=== PATIENT | female | born 1980 | race Caucasian/White ===

== ENCOUNTER 2016-12-21 16:58 | Emergency (ER) | payer OTHER ==
--- OUTSIDE RECORDS SUMMARY | 2016-12-21 17:17 | XMS REPORT | Continuity of Care Document ---
:1980 Author Organization [facility] Address [place] [address] Care Team Providers Name Role Phone Unavailable Primary Care Provider Unavailable Source Comments This disclosure is being made pursuant to the [employer] program and maynot contain all information available regarding this patient.[facility] Active Allergies and Adverse Reactions Not on File Current Medications Be aware that medications may not be up to date as of this document. Alwaysverify current medications with the patient. Not on file Active Problems Not on file Immunizations Name Dates Previously Given Next Due Influenza Split 07/31/2012 Social History Tobacco Use Types Packs/Day Years Used Date Never Smoker Last Filed Vital Signs Vital Sign Reading Time Taken Blood Pressure 90/60 01/01/2013 10:22 AM CDT Pulse 80 01/01/2013 10:22 AM CDT Temperature 36.2 C (97.2 F) 01/01/2013 10:22 AM CDT Respiratory Rate 18 01/01/2013 10:22 AM CDT Height 1.626 m (5' 4") 01/01/2013 10:22 AM CDT Weight 123.95 kg (273 lb 4.2 oz) 01/01/2013 10:22 AM CDT Body Mass Index 46.88 01/01/2013 10:22 AM CDT Oxygen Saturation - - Plan of Care Health Maintenance Due Date Last Done Comments Tetanus/Pertussis (1 - Tdap) 1997 Pap Smear 1999 Influenza Immunization (#1) 2016 07/31/2012 Results from Last 3 Months Not on file
--- OUTSIDE RECORDS SUMMARY | 2016-12-21 17:17 | XMS REPORT | Continuity of Care Document ---
:1980 Author Organization [facility] ([facility]) Address [place] [address] Phone [phone] Care Team Providers Name Role Phone [facility] [id number] Primary Care Provider [phone] Source Comments This disclosure is being made pursuant to the Care Everywhere program, applicable federal and state laws, and may not contain all informaitonavailable regarding this patient.[facility] ([facility]) Active Allergies and Adverse Reactions No Known Allergies Current Medications No known medications Active Problems Problem Noted Date Pain in joint, multiple sites 11/25/2011 Back pain 11/25/2011 Edema 11/25/2011 Overview: No medical treatment DUPREE (dyspnea on exertion) 11/25/2011 Overview: With climbing 2 flights of stairs or more Generalized headaches 11/25/2011 Irregular menses 11/25/2011 Previous delivery, antepartum condition or complication 08/19/2006 state, incidental 04/22/2006 Decreased movements, affecting management of mother, antepartum 2005 Other specified complication, antepartum 10/11/2005 Unspecified hypertension antepartum 07/26/2005 Immunizations Name Dates Previously Given Next Due Influenza, unspecified 07/26/2005 Social History Tobacco Use Types Packs/Day Years Used Date Never Smoker Smokeless Tobacco: Never Used Tobacco Cessation:Counseling Given: No Comments: Alcohol Use Drinks/Week oz/Week Comments Yes last drink before Last Filed Vital Signs Vital Sign Reading Time Taken Blood Pressure 140/82 10/05/2012 2:37 PM CDT Pulse 88 10/05/2012 2:37 PM CDT Temperature 37 C (98.6 F) 10/05/2012 2:37 PM CDT Respiratory Rate 20 02/24/2012 12:22 PM CDT Height 1.57 m (5' 1.81") 11/09/2012 7:40 AM CDT Weight 122.5 kg (270 lb 1 oz) 11/09/2012 7:40 AM CDT Body Mass Index 49.7 11/09/2012 7:40 AM CDT Oxygen Saturation - - Plan of Care Health Maintenance Due Date Last Done Comments Hepatitis B Vaccine (1 of 3 - Primary 1978 Series) Tdap Vaccine 1989 Lipid Disorder Screening 1996 MMR Vaccine 1996 Td Vaccine 1996 Cervical Cancer Screening 04/22/2009 04/22/2006, 07/26/2005 Influenza Vaccine: Seasonal (#1) 02/16/2016 07/26/2005 Results from Last 3 Months Not on file
--- NOTE | 2016-12-21 17:21 | ERNOTE ---
Integumentary HPI - General Presenting Symptoms: insect bite Time Seen by Provider: 12/21/16 17:06 Source: patient Exam Limitations: no limitations - Immun/Allergies/Home Medications Immunizations: IMMUNIZATION HX Immunizations Up to Date Yes History of Influenza Vaccine No Hx Pneumococcal Vaccination No Allergies/Adverse Reactions: Allergies Allergy/AdvReac Type Severity Reaction Status Date / Time No Known Allergies Allergy Verified 12/21/16 17:04 Home Medications: HOME MEDICATIONS Levothyroxine Sodium [Synthroid] 50 mcg PO DAILY 12/21/16 [Last Taken Unknown] - History of Present Illness Narrative: Just prior to coming here patient noticed what appears to be a tick on her left ankle. She gets in and out of her car which is parked under a big tree, otherwise she is not outside a lot, denies any other symptoms. She is rather anxious since she has not had a tick before Date (Duration): 12/21/16 Review of Systems - Review of Systems Constitutional: Absent: recent illness, fever ENT: Absent: nasal drainage, sore throat Respiratory: Absent: shortness of breath, cough Cardiology: Absent: chest pain Gastrointestinal/Abdominal: Absent: nausea, vomiting, abdominal pain Genitourinary: Present: no symptoms reported Skin: Present: See HPI Neurological: Absent: weakness, numbness - Patient's Past Medical History Patient History - Medical: No pertinent hx Patient History - Cardiac/Respiratory: No pertinent hx Patient History - Cancer: Other Patient History - Surgical Procedures: Cholecystectomy, - Social History Living Situations: significant other - from [place]. moved here to be with her signficant other. Have you smoked in the past 12 months: No Alcohol Use: none - Immunizations Immunizations Up to Date: Yes Hx Pneumococcal Vaccination: No History of Influenza Vaccine: No Physical Exam - Physical Exam General Appearance: Present: wd/wn, alert, no apparent distress, anxious, obese Respiratory: Present: no respiratory distress, normal breath sounds, lungs clear Cardiovascular/Chest: Present: regular rate, rhythm, no murmur Extremity Exam: Present: normal except -, other - 2mm tick on left medial ankle , no surrounding skin changes Neurological Exam: Present: alert, oriented, normal mood/affect Skin Exam: Present: normal color, warm/dry ED Progress - Vital Signs Patient's Vital Signs:: I have reviewed the patient's vital signs. Vital Signs: Vital Signs 12/21/16 17:01 Temperature 37 C Pulse Rate 120 H Respiratory 12 Rate Blood Pressure 158/84 O2 Sat by Pulse 96 Oximetry - Progress/Reassessment Chief Complaint: Insect Bite Progress Note-Subjective: 12/21/16 17:10 tick removed with traction Departure Clinical Impression: Tick bite of left lower leg Qualifiers: Encounter type: initial encounter Qualified Code(s): S80.862A - Insect bite ( nonvenomous), left lower leg, initial encounter; W57.XXXA - Bitten or stung by nonvenomous insect and other nonvenomous arthropods, initial encounter - Departure Disposition: Home self-care Condition: Good Instructions: Insect Bite Additional Instructions: as the tick was very small it is unlikely to have transmitted any diseases Referrals: Shy Rosenberg DO [Primary Care Provider] - (as needed)
[2016-12-21 17:22] VITALS: BP 133/90
== END 2016-12-21 17:28 | disposition home or self-care (01) ==
LOC: ER 16:58
DX: S90.562A Insect bite (nonvenomous), left ankle, initial encounter (principal); W57.XXXA Bitten or stung by nonvenomous insect and other nonvenomous arthropods, initial encounter

== ENCOUNTER 2016-12-30 14:53 | Emergency (ER) | payer OTHER ==
[2016-12-30 14:59] VITALS: BP 143/85
--- NOTE | 2016-12-30 15:21 | ERNOTE ---
Integumentary HPI - Narrative Date of Service: 12/30/16 - General Time Seen by Provider: 12/30/16 15:02 - Immun/Allergies/Home Medications Immunizations: IMMUNIZATION HX Immunizations Up to Date Yes History of Influenza Vaccine No Hx Pneumococcal Vaccination No Allergies/Adverse Reactions: Allergies Allergy/AdvReac Type Severity Reaction Status Date / Time No Known Allergies Allergy Verified 12/30/16 14:59 Home Medications: HOME MEDICATIONS Levothyroxine Sodium [Synthroid] 50 mcg PO DAILY 12/21/16 [Last Taken Unknown] Sulfamethoxazole/Trimethoprim [Bactrim Ds] 1 tab PO BID #28 tab 12/30/16 [Last Taken Unknown] - History of Present Illness Narrative: Pt. comes in with c/o Red area surrounding a tick bite that she got four days ago. The tick was removed by our ER within 2 hours of being exposed and was 2mm in size. Pt. denes any other prehospital treatment, fevers, SOB, NVD, CP, dizziness, lightheadedness, or rash. Review of Systems - Review of Systems Constitutional: Present: no symptoms reported. Absent: recent illness, fever, chills, weakness, fatigue, malaise EYE: Present: no symptoms reported ENT: Present: no symptoms reported Respiratory: Present: no symptoms reported. Absent: shortness of breath, cough , wheezing Cardiology: Present: no symptoms reported. Absent: chest pain, palpitations, edema Gastrointestinal/Abdominal: Present: no symptoms reported. Absent: nausea, vomiting, diarrhea Genitourinary: Present: no symptoms reported Musculoskeletal: Present: no symptoms reported. Absent: back pain, neck pain, joint pain Skin: Present: lesions - 1cm surrounding tick bite on R posterior ankle. Absent : rash Neurological: Present: no symptoms reported. Absent: headache, dizziness/light- headedness, numbness, tingling All Other Systems: All systems neg except as marked - Patient's Past Medical History Patient History - Medical: No pertinent hx Patient History - Cardiac/Respiratory: No pertinent hx Patient History - Cancer: Other Patient History - Surgical Procedures: Cholecystectomy, Patient History - Other: None LMP (females 10-50): last week - Social History Living Situations: home Psych History: No pertinent hx Alcohol Use: none - Immunizations Immunizations Up to Date: Yes Hx Pneumococcal Vaccination: No History of Influenza Vaccine: No Physical Exam - Physical Exam General Appearance: Present: wd/wn, alert, no apparent distress Eye Exam: Normal inspection: bilateral, PERRL: bilateral, EOMI: bilateral Ears, Nose, Throat: Present: normal ENT inspection, normal pharynx Neck: Present: normal inspection, nontender. Absent: lymphadenopathy (R), lymphadenopathy (L) Respiratory: Present: no respiratory distress, normal breath sounds, no accessory muscle use, chest nontender, lungs clear Cardiovascular/Chest: Present: regular rate, rhythm, no murmur, normal peripheral pulses Gastrointestinal/Abdominal: Present: normal bowel sounds, nontender Back Exam: Present: normal inspection Extremity Exam: Present: normal range of motion, no edema, other - erythematous induration 1cm surrounding tick bite on R posterior ankle Neurological Exam: Present: alert, oriented, normal mood/affect, no motor/ sensory deficits Skin Exam: Present: normal color, warm/dry. Absent: pallor, skin rash ED Progress - Date and Time Seen: Date and Time: 12/30/16 15:19 As pt. has local signs of infection but not signs of Lymes disease feel that pt. should be treated for local infection and not tested for Lymes at this time but should be monitored for a week or so by her PCP for signs of lymes. - Vital Signs Patient's Vital Signs:: I have reviewed the patient's vital signs. Vital Signs: Vital Signs 12/30/16 14:56 Temperature 37.2 C Pulse Rate 98 Respiratory 15 Rate Blood Pressure 143/85 O2 Sat by Pulse 97 Oximetry - Progress/Reassessment Chief Complaint: Insect Bite Progress:: Unchanged Departure Clinical Impression: Tick bite of right lower leg with infection Qualifiers: Encounter type: subsequent encounter Qualified Code(s): S80.861D - Insect bite (nonvenomous), right lower leg, subsequent encounter; L08.9 - Local infection of the skin and subcutaneous tissue, unspecified; W57.XXXD - Bitten or stung by nonvenomous insect and other nonvenomous arthropods, subsequent encounter - Departure Disposition: Home self-care Condition: Good Instructions: Cellulitis, Adult, [id number] Additional Instructions: Please follow up with primary provider as scheduled Prescriptions: Sulfamethoxazole/Trimethoprim [Bactrim Ds] 1 tab PO BID #28 tab
--- OUTSIDE RECORDS SUMMARY | 2016-12-30 15:25 | XMS REPORT | Continuity of Care Document ---
:1980 Author Organization [facility] ([facility]) Address [place] [address] Phone [phone] Care Team Providers Name Role Phone [facility] [id number] Primary Care Provider [phone] Source Comments This disclosure is being made pursuant to the Care Everywhere program, applicable federal and state laws, and may not contain all informaitonavailable regarding this patient.[facility] ([facility]) Active Allergies and Adverse Reactions No Known [...]
--- OUTSIDE RECORDS SUMMARY | 2016-12-30 15:25 | XMS REPORT | Continuity of Care Document ---
:1980 Author Organization [facility] [place] [address] Care Team Providers Name Role Phone Unavailable Primary Care Provider Unavailable Source Comments This disclosure is being made pursuant to the [employer] program and maynot contain all information available regarding this patient.[facility] Active Allergies and Adverse Reactions Not on [...]
== END 2016-12-30 15:29 | disposition home or self-care (01) ==
LOC: ER 14:53
DX: S80.861D Insect bite (nonvenomous), right lower leg, subsequent encounter (principal); W57.XXXD Bitten or stung by nonvenomous insect and other nonvenomous arthropods, subsequent encounter

== ENCOUNTER 2017-04-13 08:18 | Emergency (ER) | payer OTHER ==
[2017-04-13] MEDS ORDERED: ORPHENADRINE CITRATE 30 MG/ML VIAL IM ONE (08:56)
[2017-04-13] MEDS ORDERED: KETOROLAC TROMETHAMINE 30 MG/ML VIAL IM ONE (08:56)
[2017-04-13] MEDS ORDERED: ORPHENADRINE CITRATE 30 MG/ML VIAL ONE (09:04)
[2017-04-13] MEDS ORDERED: KETOROLAC TROMETHAMINE 30 MG/ML VIAL ONE (09:04)
--- NOTE | 2017-04-13 09:42 | ERNOTE ---
Back Pain ER HPI Date of Service: 04/13/17 Presenting Symptoms: other - back pain Time Seen by Provider: 04/13/17 08:56 Source: patient Exam Limitations: no limitations Immunizations: IMMUNIZATION HX Immunizations Up to Date Yes History of Influenza Vaccine No Hx Pneumococcal Vaccination No Allergies/Adverse Reactions: Allergies No Known Allergies Allergy (Verified 12/30/16 14:59) Home Medications: HOME MEDICATIONS Levothyroxine Sodium [Synthroid] 50 mcg PO DAILY 12/21/16 [Last Taken Unknown] Sulfamethoxazole/Trimethoprim [Bactrim Ds] 1 tab PO BID #28 tab 12/30/16 [Last Taken Unknown] Cyclobenzaprine HCl [Flexeril] 10 mg PO TID PRN #20 tab 04/13/17 [Last Taken Unknown] Naproxen [Naprosyn] 375 mg PO BID #14 tab 04/13/17 [Last Taken Unknown] Narrative: Patient presents for back pain. She has been having a couple of week of right sided leg/thigh pain. She saw her doctor and was diagnosed with a pinched nerve in her back. No N/T/W. no fever. This am when she tried to get out of bed she had pain in her low back. This is mostly right sided but some on the left. Pain moderate now. Worse with movement. No new N/T/W. No dysuria. no hematuria. No midline tenderness. No fall or other trauma. Timing: Reports: constant Quality/Severity: Reports: moderate Location of pain: Reports: lower back Activities at Onset: Reports: other - turning, getting out of bed. Possible Precipitating Factor: Reports: turning/bending Modifying Factors - (Improves): Reports: other - rest Modifying Factors - (Worsens): Reports: other - movement and palpation Associated Symptoms: Denies: fever/chills, sweating, constipation/incontinence, nausea/vomiting, problems urinating, difficulty walking, numbess/weakness in legs Prior Treament: Reports: recently seen Review of Systems - Review of Systems Constitutional: Absent: fever Respiratory: Absent: shortness of breath Cardiology: Absent: chest pain Gastrointestinal/Abdominal: Absent: abdominal pain Genitourinary: Absent: dysuria Musculoskeletal: Present: See HPI Skin: Absent: rash Neurological: Absent: weakness, numbness, tingling - Patient's Past Medical History Patient History - Medical: Hypothyroidism Patient History - Cardiac/Respiratory: No pertinent hx Patient History - Cancer: Other Patient History - Surgical Procedures: Cholecystectomy, Patient History - Other: None LMP (females 10-50): last week - Social History Living Situations: home Abuse History: No History of abuse Psych History: No pertinent hx Smoking Status: Never smoker Alcohol Use: none Drug Use: none - Immunizations Immunizations Up to Date: Yes Hx Pneumococcal Vaccination: No History of Influenza Vaccine: No Physical Exam - Physical Exam General Appearance: Present: alert, no apparent distress Head Exam: Present: normal inspection Eye Exam: Normal inspection: bilateral Ears, Nose, Throat: Present: normal ENT inspection Neck: Present: normal inspection Respiratory: Present: no respiratory distress Cardiovascular/Chest: Present: regular rate, rhythm Gastrointestinal/Abdominal: Present: normal bowel sounds, nontender, soft Back Exam: Present: other - no vertebral tendenress. There is completely reproducible tendenress in the bilateral muscualture right greater than left. Palpation of the musculature completely reproduces the pain. Absent: CVA tenderness (R), CVA tenderness (L) Extremity Exam: Present: normal inspection, normal range of motion Neurological Exam: Present: alert, normal mood/affect, no motor/sensory deficits , other - Patellar tendon reflexes equal and symmetric. Full LE strength and sensation. Gait stable. Can stand on toes and heels. No suggestion of motor or sensory deficit or cauda equina syndrome. Skin Exam: Present: normal color, warm/dry ED Progress - Vital Signs Patient's Vital Signs:: I have reviewed the patient's vital signs. Vital Signs: Vital Signs 04/13/17 08:28 Temperature 36.5 C Pulse Rate 65 Respiratory 16 Rate Blood Pressure 167/102 O2 Sat by Pulse 99 Oximetry - Progress/Reassessment Chief Complaint: Back Pain Progress Note-Subjective: 04/13/17 09:41 No red flags, I do not feel x-ray indicated. nothing to suggest fracture, infectious process, diskiitis, neuro defict, urinary source of cauda-equina syndrome. She is improved with meds here. She feels like going home. Nothing to suggest need for emergent MRI. I discussed warning signs and reasons to return as well as the need for close f/u. Departure Clinical Impression: Back pain - Departure Disposition: Home self-care Condition: Stable Instructions: Back Pain, Adult Additional Instructions: Rest. medications as directed. No driving while taking. Follow-up with your doctor, May 02 at 4pm. Call to see if you can get a sooner appointment. Return here for fever, numbness, tingling, weakness, loss of bowel or bladder control, urinary symptoms or if your condition worsens or changes in any way. Referrals: Shy Rosenberg DO [Primary Care Provider] - Prescriptions: Cyclobenzaprine HCl [Flexeril] 10 mg PO TID PRN #20 tab PRN Reason: MUSCLE SPASMS Naproxen [Naprosyn] 375 mg PO BID #14 tab
[2017-04-13 09:52] VITALS: BP 134/84
== END 2017-04-13 09:52 | disposition home or self-care (01) ==
LOC: ER 08:18
DX: M54.9 Dorsalgia, unspecified (principal)

== ENCOUNTER 2017-05-24 07:55 | Emergency (ER) | payer OTHER ==
--- NOTE | 2017-05-24 08:22 | ERNOTE ---
Chest Pain/Cardiac HPI Chief Complaint: Palpitations Time Seen by Provider: 05/24/17 08:13 Source: patient Exam Limitations: no limitations - patient states Immunizations: IMMUNIZATION HX Immunizations Up to Date Yes History of Influenza Vaccine No Hx Pneumococcal Vaccination No Allergies/Adverse Reactions: Allergies No Known Allergies Allergy (Verified 05/24/17 08:07) Home Medications: HOME MEDICATIONS Levothyroxine Sodium [Synthroid] 50 mcg PO DAILY 12/21/16 [Last Taken Unknown] Narrative: Patient states that she has been having heart palpitations for the past 2 weeks roughly. She states that she used to drink a lot of pop, but she has been trying to cut down and is just concerned because the family history of heart disease. Patient denies any chest pain, jaw pain, arm pain or diaphoresis. Timing: intermittent Severity/Quality: moderate, other - feels as though her heart is jumping around in her chest Location: central Chest Pain Radiation: no radiation Activities at Onset: none Modifying Factors - Improves: Present: nothing Modifying Factors - Worsens: Present: nothing Associated Symptoms: Present: denies symptoms Prior Chest Pain/Cardiac Workup: Reports: no prior cardiac workup Prior Treatment: Reports: recently seen, other - her family doctor is adjusting her thyroid medicine Review of Systems - Review of Systems Constitutional: Present: See HPI EYE: Present: no symptoms reported ENT: Present: no symptoms reported Respiratory: Present: no symptoms reported Cardiology: Present: See HPI Gastrointestinal/Abdominal: Present: no symptoms reported Genitourinary: Present: no symptoms reported Musculoskeletal: Present: no symptoms reported Skin: Present: no symptoms reported Neurological: Present: no symptoms reported Endocrine: Present: no symptoms reported Hematologic/Lymphatic: Present: no symptoms reported Psych: Present: no symptoms reported - Patient's Past Medical History Patient History - Medical: Hypothyroidism Patient History - Cardiac/Respiratory: No pertinent hx Patient History - Cancer: Other Patient History - Surgical Procedures: Cholecystectomy, Patient History - Other: None LMP (females 10-50): 1 month LMP (Calendar): 05/04/17 - Social History Living Situations: home Abuse History: No History of abuse Psych History: No pertinent hx Smoking Status: Never smoker Alcohol Use: none Drug Use: none - Immunizations Immunizations Up to Date: Yes Hx Pneumococcal Vaccination: No History of Influenza Vaccine: No Physical Exam - Physical Exam General Appearance: Present: wd/wn, alert, no apparent distress Head Exam: Present: normal inspection Eye Exam: Normal inspection: bilateral, PERRL: bilateral Ears, Nose, Throat: Present: normal ENT inspection, H, normal pharynx Neck: Present: normal inspection, nontender Respiratory: Present: no respiratory distress, normal breath sounds, no accessory muscle use, chest nontender, lungs clear Cardiovascular/Chest: Present: regular rate, rhythm, no murmur, normal peripheral pulses Gastrointestinal/Abdominal: Present: normal bowel sounds, nontender, nondistended, soft, no organomegaly, other - obesity Rectal Exam: Present: deferred Back Exam: Present: normal inspection, normal range of motion Extremity Exam: Present: normal inspection, non-tender, no edema, normal range of motion Neurological Exam: Present: alert, oriented, normal mood/affect Skin Exam: Present: normal color, warm/dry Lymphatic Exam: Present: no adenopathy ED Progress - Results and Orders Patient's Lab Results:: I have reviewed the patient's lab results. - Vital Signs Patient's Vital Signs:: I have reviewed the patient's vital signs. Vital Signs: Vital Signs 05/24/17 07:59 Temperature 36.8 C Pulse Rate 87 Respiratory 15 Rate Blood Pressure 147/87 O2 Sat by Pulse 99 Oximetry - EKG EKG: NSR EKG read: Reviewed by me - Progress/Reassessment Chief Complaint: Palpitations Plan - Plan Plan: Unclear etiology for the palpitations, although she states she had been drinking a lot of pop and cutting down drastically right now. It is possible that she is having some difficulty with her thyroid and I will have her follow- up with her family physician for further adjustment on that, and the family physician will decide whether a Holter monitor might be in order as well. Departure Clinical Impression: Heart palpitations - Departure Disposition: Home self-care Condition: Good Instructions: Palpitations, [id number] Referrals: Shy Rosenberg DO [Primary Care Provider] -
[2017-05-24 08:30] LABS: Hematocrit 41.3 % (37.0-47.0); Hemoglobin 13.7 gm/dL (12.5-16.0); Mean Cell Volume 87.9 fl (78-100); Mean Corpuscular Hemoglobin 29.1 pg (27-31); Mean Corpuscular Hgb Conc 33.2 g/dl (32-36); Mean Platelet Volume 9.3 fl (6.0-9.5); Neutrophil # 3.8 K/mm3 (1.3-6.0); Neutrophil % 59.2 % (42-75.0); Platelet Count 259 K/mm3 (150-450); White Blood Count 6.5 K/mm3 (4.0-10.5)
[2017-05-24 08:44] VITALS: BP 132/77
[2017-05-24 08:48] LABS: Troponin I Less than 0.017 ng/ml (0.00-0.10)
[2017-05-24 08:52] LABS: ALT 20 U/L (19-67); AST 15 U/L (0-48); Albumin * 3.7 gm/dl (3.4-5.0); Alkaline Phosphatase * 85 U/L (50-170); BUN/Creatinine Ratio 13.1 (9.0-21.6); Bilirubin, Total 0.6 mg/dL (0.0-1.1); Blood Urea Nitrogen 11 mg/dL (3-23); Ca. Corrected For Albumin 9.2 mg/dL (8.4-10.2); Calcium * 9.3 mg/dL (7.9-10.9); Chloride 103 mmol/L (97-106); Glucose * 110 mg/dL (70-110); Magnesium 1.9 mg/dL (1.2-2.8); Sodium 140 mmol/L (132-142); TSH * 2.607 uIU/mL (0.358-3.74); Total Protein 7.7 gm/dL (6.2-8.2)
== END 2017-05-24 08:57 | disposition home or self-care (01) ==
LOC: ER 07:55
DX: R00.2 Palpitations (principal); E03.9 Hypothyroidism, unspecified

== ENCOUNTER 2017-05-25 09:13 | Emergency (ER) | payer OTHER ==
[2017-05-25] MEDS ORDERED: diphenhydrAMINE HCL 50 MG/ML VIAL IV ONE (09:44)
[2017-05-25] MEDS ORDERED: NORMAL SALINE 1,000 ML IV ONE (09:44)
[2017-05-25] MEDS ORDERED: METOCLOPRAMIDE HCL 5 MG/ML VIAL IV ONE (09:44)
--- NOTE | 2017-05-25 09:46 | ERNOTE ---
Medical Problem HPI - General Chief Complaint: General Assessment Time Seen by Provider: 05/25/17 09:40 Source: patient Exam Limitations: no limitations - Immun/Allergies/Home Medications Immunizations: IMMUNIZATION HX Immunizations Up to Date Yes History of Influenza Vaccine No Hx Pneumococcal Vaccination No Allergies/Adverse Reactions: Allergies No Known Allergies Allergy (Verified 05/25/17 09:27) Home Medications: HOME MEDICATIONS Levothyroxine Sodium [Synthroid] 50 mcg PO DAILY 12/21/16 [Last Taken Unknown] Prochlorperazine [Compazine] 25 mg RC BID PRN #14 supp.rect 05/25/17 [Last Taken Unknown] - History of Present History Narrative: Patient developed a migraine last night and has been unable to shake it throughout the evening or this morning. She has a typical symptomatology and presentation of weakness, photophobia and nausea. Timing: constant Severity: moderate Review of Systems - Review of Systems Constitutional: Present: See HPI EYE: Present: no symptoms reported ENT: Present: no symptoms reported Respiratory: Present: no symptoms reported Cardiology: Present: no symptoms reported Gastrointestinal/Abdominal: Present: no symptoms reported Genitourinary: Present: no symptoms reported Musculoskeletal: Present: no symptoms reported Skin: Present: no symptoms reported Neurological: Present: See HPI Endocrine: Present: no symptoms reported Hematologic/Lymphatic: Present: no symptoms reported Psych: Present: no symptoms reported - Patient's Past Medical History Patient History - Medical: Headache - migraines, Hypothyroidism Patient History - Cardiac/Respiratory: No pertinent hx Patient History - Cancer: Other Patient History - Surgical Procedures: Cholecystectomy, Patient History - Other: None - Social History Living Situations: home Abuse History: No History of abuse Psych History: No pertinent hx - Immunizations Immunizations Up to Date: Yes Hx Pneumococcal Vaccination: No History of Influenza Vaccine: No Physical Exam - Physical Exam General Appearance: Present: wd/wn, alert, moderate distress Head Exam: Present: normal inspection Eye Exam: Normal inspection: bilateral, PERRL: bilateral, Photophobia: bilateral Ears, Nose, Throat: Present: normal ENT inspection, H, normal pharynx Neck: Present: normal inspection, nontender Respiratory: Present: no respiratory distress, normal breath sounds, no accessory muscle use, chest nontender, lungs clear Cardiovascular/Chest: Present: regular rate, rhythm, no murmur, normal peripheral pulses Gastrointestinal/Abdominal: Present: normal bowel sounds, nontender, nondistended, soft, no organomegaly Rectal Exam: Present: deferred Back Exam: Present: normal inspection, normal range of motion Extremity Exam: Present: normal inspection, non-tender, no edema, normal range of motion Neurological Exam: Present: alert, oriented, normal mood/affect Skin Exam: Present: normal color, warm/dry Lymphatic Exam: Present: no adenopathy ED Progress - Vital Signs Patient's Vital Signs:: I have reviewed the patient's vital signs. Vital Signs: Vital Signs 05/25/17 09:22 Temperature 36.7 C Pulse Rate 73 Respiratory 16 Rate Blood Pressure 143/89 O2 Sat by Pulse 96 Oximetry - Progress/Reassessment Chief Complaint: General Assessment Progress:: Improved Plan - Plan Plan: Patient feels essentially better after the Reglan and Benadryl IV fluid. Patient will be given a prescription for Compazine suppositories 25 mg that she can take with 50 mg of Benadryl orally in the event she has recurrent migraine. Patient is to follow-up with her family physician. Departure Clinical Impression: Migraine Qualifiers: Migraine type: with aura Status migrainosus presence: without status migrainosus Intractability: not intractable Qualified Code(s): G43.109 - Migraine with aura, not intractable, without status migrainosus - Departure Disposition: Home self-care Condition: Good Instructions: Migraine Headache, [id number] Referrals: Shy Rosneberg DO [Primary Care Provider] - Prescriptions: Prochlorperazine [Compazine] 25 mg RC BID PRN #14 supp.rect PRN Reason: Headache
[2017-05-25] MEDS ORDERED: diphenhydrAMINE HCL 50 MG/ML VIAL ONE (09:56)
[2017-05-25 13:19] VITALS: BP 125/63
== END 2017-05-25 11:15 | disposition home or self-care (01) ==
LOC: ER 09:13
DX: G43.109 Migraine with aura, not intractable, without status migrainosus (principal); E03.9 Hypothyroidism, unspecified